=== PATIENT | female | born 1965 | race Caucasian/White ===

== ENCOUNTER → 2023-02-09 10:09 | Outpatient (CLI) | payer OTHER, MEDICAID, SELFPAY ==
[2023-02-09 10:57] LABS: Add Manual Diff / Slide Review NO; Basophils Absolute Auto 0 /uL (0-100); Basophils Percent Auto 0.8 % (0-2); Eosinophils Absolute Auto 0 /uL (0-450); Eosinophils Percent Auto 0.9 % (2-4); Hematocrit 37.4 % (36-46); Hemoglobin 12.5 g/dL (12.0-16.0); Lymphocytes Absolute Auto 1500 /uL (1100-4500); Lymphocytes Percent Auto 28.4 % (25-40); Mean Corpuscular HGB Conc 33.3 % (30-36); Mean Corpuscular Hemoglobin 28.9 PG (26-34); Mean Corpuscular Volume 86.8 fL (80-100); Monocytes Absolute Auto 700 /uL (0-900); Monocytes Percent Auto 12.5 % (3-14); Neutrophils Absolute Auto 3000 /uL (1500-7000); Neutrophils Percent Auto 57.4 % (50-75); Platelet Count 227 X10^3/uL (150-400); Red Blood Cell Count 4.31 X10^6/uL (4.0-5.2); Red Cell Distribution Width 15.3 % (11.6-14.8); White Blood Cell Count 5.3 X10^3/uL (4.5-11.0)
[2023-02-09 11:21] LABS: HEMOLYSIS < 15 (0-50); Potassium 5.2 mmol/L (3.4-5.1)
[2023-02-09 11:22] LABS: Alanine Aminotransferase 17 IU/L (<35); Albumin 4.3 g/dL (3.5-5.0); Albumin Globulin Ratio 1.4 (1.0-2.8); Alkaline Phosphatase 53 U/L (38-126); Aspartate Aminotransferase 30 IU/L (14-36); BUN Creatinine Ratio 20.6 (6-22); Bilirubin Total 0.6 mg/dL (0.2-1.3); Blood Urea Nitrogen 14 mg/dL (7-17); Calcium 9.7 mg/dL (8.4-10.2); Carbon Dioxide 30 mmol/L (22-32); Chloride 104 mmol/L (98-107); Cholesterol 180 mg/dL (140-199); Estimated Glomerular Filt Rate > 60 mL/min (>60); Globulin 3.1 g/dL (1.7-4.1); Glucose 105 mg/dL (70-100); HDL Cholesterol 62 mg/dL (40-60); LDL Cholesterol Calculated 95 mg/dL (<100); Sodium 137 mmol/L (137-145); Total Protein 7.4 g/dL (6.3-8.2); Triglycerides 114 mg/dL (35-150)
[2023-02-09 11:51] LABS: TSH w/ Reflex to FT4 1.27 uIU/mL (0.47-4.68)
== END ==
PROVIDERS: PCP Family Medicine; Referring Provider Family Medicine; Visit Provider Family Medicine
DX: Z13.6 Encounter for screening for cardiovascular disorders (principal); F41.9 Anxiety disorder, unspecified
CPT/HCPCS: 36415; 80053; 80061; 84443; 85025

== ENCOUNTER → 2023-02-14 08:53 | Outpatient (CLI) | payer OTHER, MEDICAID, SELFPAY ==
--- NOTE | 2023-02-14 08:54 | DI.CT.S_ITS ---
PROCEDURE: CT LUNG LOW DOSE SCREENING INDICATIONS: smoking history TECHNIQUE: Noncontrast 2.0-2.5 mm thick sections acquired from the pulmonary apices to the posterior costophrenic angles. 7 mm thick axial MIP, and 5 mm coronal and sagittal reformats were then acquired. For radiation dose reduction, the following was used: automated exposure control, adjustment of mA and/or kV according to patient size. COMPARISON: None. FINDINGS: Image quality: Diagnostic, given the low radiation dose technique. Lungs and pleura: No acute airspace opacities. No suspicious pulmonary nodules or mass lesions. Mediastinum: Heart size is normal. No pericardial effusion. No mediastinal adenopathy by size criteria. Thoracic aorta and central pulmonary arteries are normal in size. Esophagus is normal in caliber. No hiatal hernia. Bones and chest wall: No suspicious bony lesions. No vertebral body compression fractures. No axillary or supraclavicular adenopathy by size criteria. No thyroid nodules which require sonographic follow up, per consensus guidelines. Upper Abdomen: Visualized upper abdomen solid organs and bowel loops appear normal in the absence of contrast. IMPRESSION: No suspicious pulmonary nodules. LUNG-RADS 1; continued annual screening, if eligible. Clinically Significant Non-pulmonary Findings: None. Dictated by: Nita Gong M.D. on 02/14/2023 at 9:37 Approved by: Nita Gong M.D. on 02/14/2023 at 9:42
== END ==
PROVIDERS: PCP Family Medicine; Referring Provider Family Medicine; Visit Provider Family Medicine
DX: Z12.2 Encounter for screening for malignant neoplasm of respiratory organs (principal); Z87.891 Personal history of nicotine dependence
CPT/HCPCS: 71271

== ENCOUNTER → 2023-06-06 11:55 | Outpatient (CLI) | payer OTHER, MEDICAID, SELFPAY | PROVIDERS: PCP Family Medicine; Visit Provider Physician Assistant | DX: R82.90 Unspecified abnormal findings in urine (principal) | CPT/HCPCS: 87086 ==

== ENCOUNTER 2023-06-06 12:13 | Emergency (ER) | payer OTHER, MEDICAID, SELFPAY ==
[2023-06-06 12:23] VITALS: BP 174/79; PULSE 63; RESP 18; TEMP 36.6; O2SAT 96; BMI 27.8
--- NOTE | 2023-06-06 12:34 | DI.CT.S_ITS ---
PROCEDURE: CT ABDOMEN PELVIS W CON INDICATIONS: L flank pain TECHNIQUE: After the administration of intravenous contrast, axial sections acquired from the lung bases to the pubic symphysis. Coronal and sagittal reformats were performed. For radiation dose reduction, the following was used: automated exposure control, adjustment of mA and/or kV according to patient size. COMPARISON: None. FINDINGS: Image quality: Diagnostic. Lower Chest: No significant findings. ABDOMEN: Liver: No solid mass. Gallbladder: No radiopaque gallstones or wall thickening. Biliary ducts: No biliary dilation. Pancreas: No ductal dilation. Spleen: Size is within normal limits. Adrenal Glands: No adrenal nodules. Kidneys and Ureters: No hydronephrosis. No solid mass. No complex renal cystic lesion which requires follow up. Stomach and Bowel: Normal colonic caliber, without significant wall thickening. Scattered diverticulosis without evidence of acute diverticulitis. Peritoneum: No abnormal intraperitoneal fluid. No free air. Ventral Wall: No significant ventral hernia. Abdominal Nodes: No retroperitoneal or mesenteric adenopathy by size criteria. Vessels: Aorta and inferior vena cava are normal in size. PELVIS: Pelvic Organs: Unremarkable. Bladder: No bladder wall thickening, accounting for underdistention. Pelvic Nodes: No enlarged lymph nodes. Miscellaneous: Small bilateral fat containing inguinal hernias. Bones: No aggressive osseous abnormality. IMPRESSION: 1. No acute abdominal process noted. 2. Incidental note made of small bilateral inguinal hernias containing fat. 3. Scattered diverticulosis. 4. Otherwise unremarkable. No findings which explain left flank pain. Dictated by: Rodney Fuller M.D. on 06/06/2023 at 13:19 Approved by: Rodney Fuller M.D. on 06/06/2023 at 13:23
--- NOTE | 2023-06-06 12:36 | ED_ITS ---
HPI - Female Genitourinary <Juan Mitchell PA-C - Last Filed: 06/06/23 14:36> General Chief complaint: Urogenital-Female Stated complaint: [facility]IC ref/ pos. kidney stone/ ab pain Time Seen by Provider: 06/06/23 12:16 Source: patient Mode of arrival: Ambulatory History of Present Illness HPI Narrative: 57-year-old female with past medical history anemia, ADHD, anxiety presents to the ED with 10 days of flank pain. Patient states that she experienced bilateral flank pain for the past 10 days, however today the pain is concentrated in the left flank, wrapping around to the front. Patient endorses nausea, denies vomiting. Does endorse some cloudiness of the urine. Patient denies fever, chills, chest pain, shortness of breath, dysuria, urinary frequency, urinary urgency, diarrhea, constipation, lightheadedness, dizziness, syncope. No history of kidney stones. Patient has had bilateral oophorectomy, appendectomy. Related Data Home Medications Medication Instructions Recorded Confirmed biotin 1 mg capsule 1 mg PO DAILY 02/07/23 06/06/23 multivitamin 1 tab PO DAILY 02/07/23 06/06/23 ferrous gluconate 324 mg (38 mg 324 mg PO DAILY 02/27/23 06/06/23 iron) tablet Previous Rx's Medication Instructions Recorded nitroglycerin 0.4 % (w/w) rectal 1 inch MI ONCE PRN spasm #30 grams 02/27/23 ointment Allergies Allergy/AdvReac Type Severity Reaction Status Date / Time No Known Drug Allergies Allergy Verified 06/06/23 12:23 Review of Systems <Juan Mitchell PA-C - Last Filed: 06/06/23 14:36> Constitutional Constitutional: Denies chills, Denies fatigue, Denies fever(s), Denies frequent falls, Denies lethargy and Denies weakness Eyes Eyes: Denies change in vision, Denies eye discharge, Denies irritation and Denies loss of vision ENT Ears, Nose, Mouth, and Throat: Denies change in voice, Denies dizziness, Denies neck pain, Denies sore throat and Denies throat swelling Cardiovascular Cardiovascular: Denies chest pain, Denies irregular heart rhythm, Denies lightheadedness, Denies palpitations, Denies dyspnea, Denies dyspnea on exertion and Denies orthopnea Respiratory Respiratory: Denies cough, Denies dyspnea, Denies dyspnea on exertion and Denies wheezing Gastrointestinal Gastrointestinal: Reports abdominal pain, Denies change in bowel habits, Denies diarrhea, Reports nausea and Denies vomiting Comments: Flank pain Musculoskeletal Musculoskeletal: Denies neck pain and Denies numbness Integumentary/Breasts Skin/Breast: Denies pruritus, Denies erythema, Denies rash and Denies wounds Neurologic Neurologic: Denies behavioral changes, Denies confusion, Denies dizziness, Denies frequent falls, Denies loss of vision, Denies numbness and Denies weakness Psychiatric Psychiatric: Denies anxiety, Denies behavioral changes, Denies confusion, Denies depression, Denies homicidal ideation and Denies suicidal ideation Endocrine Endocrine: Denies fatigue, Denies flushing and Denies palpitations Hematologic/Lymphatic Hematologic/Lymphatic: Denies easy bruising Allergic/Immunologic Allergic/Immunologic: Denies urticaria, Denies throat swelling and Denies wheezing Patient History <Juan Mitchell PA-C - Last Filed: 06/06/23 14:36> Medical History Chicken pox (~1983) Anemia (~1979) Endometriosis (~1991) ADHD (~1982) Fibroids (~1991) Ovarian cyst (~1993) Surgical History Anesthesia H/O oophorectomy (~1995) Hx of tonsillectomy (~1973) History of appendectomy (~1997) Family History Father Stroke Brother Suicide alcohol intake frequency: 0-2 drinks per day Alcohol type: wine Substance Use Type: does not use Exam <Juan Mitchell PA-C - Last Filed: 06/06/23 14:36> Narrative Exam Narrative: Const General:?cooperative, healthy appearing and comfortable [facility] Head:?normal to inspection Ears:?hearing grossly normal bilaterally Nose:?external nose normal Face and sinus:?normal facial exam and sinuses nontender Mouth:?oral mucosae normal Throat:?posterior oropharynx normal Eyes General:?appearance normal, both eyes and all related structures Neck Neck:?normal visual inspection and no lymphadenopathy noted Resp Effort & Inspection:?normal respiratory effort Auscultation:?clear to auscultation bilaterally Cardio Rate:?regular rate Rhythm:?regular rhythm GI Abdomen is soft, nondistended. Abdomen is somewhat tender to palpation in the left quadrants. There is minimal right-sided CVA tenderness. Significant left- sided CVA tenderness. Neuro General:?patient alert, patient awake and patient oriented x3 Initial Vital Signs Initial Vital Signs: Vital Signs Temperature 97.8 F 06/06/23 12:23 Pulse Rate 63 06/06/23 12:23 Respiratory Rate 18 06/06/23 12:23 Blood Pressure 174/79 H 06/06/23 12:23 Pulse Oximetry 96 06/06/23 12:23 Oxygen Delivery Method Room Air 06/06/23 12:23 <Caitlyn Contreras MD - Last Filed: 06/06/23 14:48> Initial Vital Signs Initial Vital Signs: Vital Signs Temperature 97.8 F 06/06/23 12:23 Pulse Rate 63 06/06/23 12:23 Respiratory Rate 18 06/06/23 12:23 Blood Pressure 174/79 H 06/06/23 12:23 Pulse Oximetry 96 06/06/23 12:23 Oxygen Delivery Method Room Air 06/06/23 12:23 Course <Juan Mitchell PA-C - Last Filed: 06/06/23 14:36> Orders Ordered: ED Orders 06/06/23 12:27 CBC Auto Diff [Complete Blood Count AUTO DIFF] Stat CMP [Comprehensive Metabolic Panel] Stat Lipase Stat 06/06/23 12:34 CT abdomen pelvis w con Stat 06/06/23 13:22 Urine Culture Stat Urine Microscopic Stat Discontinued Medications Ketorolac Tromethamine (Ketorolac 30 Mg/Ml Vial) 15 mg IV NOW ONE Stop: 06/06/23 12:33 Last Admin: 06/06/23 12:45 Dose: 15 mg Documented By: SPF Ondansetron HCl (Ondansetron 4 Mg/2 Ml Inj) 4 mg IV NOW ONE Stop: 06/06/23 12:33 Last Admin: 06/06/23 12:46 Dose: 4 mg Documented By: SPF Vital Signs Vital signs: Vital Signs - 8 hr 06/06/23 12:23 06/06/23 14:03 Temperature 97.8 F 98.2 F Pulse Rate 63 48 L Respiratory Rate 18 16 Blood Pressure 174/79 H 115/61 Pulse Oximetry 96 96 Oxygen Delivery Method Room Air Room Air <Caitlyn Contreras MD - Last Filed: 06/06/23 14:48> Orders Ordered: ED Orders 06/06/23 12:27 CBC Auto Diff [Complete Blood Count AUTO DIFF] Stat CMP [Comprehensive Metabolic Panel] Stat Lipase Stat 06/06/23 12:34 CT abdomen pelvis w con Stat 06/06/23 13:22 Urine Culture Stat Urine Microscopic Stat Discontinued Medications Ketorolac Tromethamine (Ketorolac 30 Mg/Ml Vial) 15 mg IV NOW ONE Stop: 06/06/23 12:33 Last Admin: 06/06/23 12:45 Dose: 15 mg Documented By: SPF Ondansetron HCl (Ondansetron 4 Mg/2 Ml Inj) 4 mg IV NOW ONE Stop: 06/06/23 12:33 Last Admin: 06/06/23 12:46 Dose: 4 mg Documented By: SPF Vital Signs Vital signs: Vital Signs - 8 hr 06/06/23 12:23 06/06/23 14:03 Temperature 97.8 F 98.2 F Pulse Rate 63 48 L Respiratory Rate 18 16 Blood Pressure 174/79 H 115/61 Pulse Oximetry 96 96 Oxygen Delivery Method Room Air Room Air MDM - Female Genitourinary <Juan Mitchell PA-C - Last Filed: 06/06/23 14:36> Lab Data 06/06/23 12:27 06/06/23 12:27 Labs: Lab Results 06/06/23 06/06/23 Range/Units 12:27 13:22 WBC 5.9 (4.5-11.0) X10^3/uL RBC 4.28 (4.0-5.2) X10^6/uL Hgb 13.0 (12.0-16.0) g/dL Hct 38.5 (36-46) % MCV 89.9 (80-100) fL MCH 30.3 (26-34) PG MCHC 33.7 (30-36) % RDW 13.4 (11.6-14.8) % Plt Count 305 (150-400) X10^3/uL Neut % (Auto) 64.3 (50-75) % Lymph % (Auto) 21.8 L (25-40) % [place] % (Auto) 12.3 (3-14) % Eos % (Auto) 0.9 L (2-4) % Baso % (Auto) 0.7 (0-2) % Neut # (Auto) 3800 (1769-0538) /uL Lymph # (Auto) 1300 (8628-1485) /uL [place] # (Auto) 700 (0-900) /uL Eos # (Auto) 100 (0-450) /uL Baso # (Auto) 0 (0-100) /uL Sodium 138 (137-145) mmol/L Potassium 4.4 (3.4-5.1) mmol/L Chloride 106 (98-107) mmol/L Carbon Dioxide 25 (22-32) mmol/L BUN 25 H (7-17) mg/dL Creatinine 0.77 (0.52-1.04) mg/dL Estimated GFR > 60 (>60) mL/min BUN/Creatinine Ratio 32.5 H (6-22) Glucose 102 H (70-100) mg/dL Calcium 9.8 (8.4-10.2) mg/dL Total Bilirubin 0.6 (0.2-1.3) mg/dL AST 26 (14-36) IU/L ALT 13 (<35) IU/L Alkaline Phosphatase 67 (38-126) U/L Total Protein 7.7 (6.3-8.2) g/dL Albumin 4.4 (3.5-5.0) g/dL Globulin 3.3 (1.7-4.1) g/dL Albumin/Globulin Ratio 1.3 (1.0-2.8) Lipase 137 (23-300) U/L Urine RBC None seen (0-5/HPF) Urine WBC 1-5/hpf (0-5/HPF) Ur Squamous Epith Cells None seen (0-5/HPF) Urine Bacteria None seen (None) Ur Culture Indicated? Specimen cultured Vol Urine Centrifuged 10ml (spun) Urine Dip Bedside Urine Glucose Negative Bedside Urine Bilirubin - Negative Bedside Urine Ketone - Negative Urine Specific [place] 1.010 Bedside Urine Occult Blood - Negative Bedside Urine pH 6.0 Bedside Urine Protein - Negative Bedside Urine Urobilinogen - Negative Bedside Urine Nitrite - Negative Bedside Urine Leukocytes +/- 15 Esterase MDM Narrative Medical decision making narrative: 57-year-old female with past medical history anemia, ADHD, anxiety presents to the ED with 10 days of flank pain. Concern for UTI versus pyelonephritis versus nephrolithiasis versus diverticulitis versus other intra-abdominal pathology versus other. Will obtain labs, UA, CT abdomen pelvis. Will give ketorolac and Zofran for symptoms. Will reassess. Labs within normal limits. UA without UTI. CT abdomen pelvis with no acute findings. CT did note incidental finding of bilateral inguinal hernias. Discussed findings with patient. Patient is aware of the inguinal hernias. Unclear etiology of patient's symptoms, however can not rule out musculoskeletal sprain/strain versus constipation. Patient's symptoms are well controlled with ketorolac and Zofran. Recommend continued use of ibuprofen and Tylenol at home for symptoms. Patient agrees to monitor symptoms and return to the ED if she has worsening symptoms. Recommend follow-up with PCP as soon as possible as well. Medical records reviewed: Yes <Caitlyn Contreras MD - Last Filed: 06/06/23 14:48> Lab Data Labs: Lab Results 06/06/23 06/06/23 Range/Units 12:27 13:22 WBC 5.9 (4.5-11.0) X10^3/uL RBC 4.28 (4.0-5.2) X10^6/uL Hgb 13.0 (12.0-16.0) g/dL Hct 38.5 (36-46) % MCV 89.9 (80-100) fL MCH 30.3 (26-34) PG MCHC 33.7 (30-36) % RDW 13.4 (11.6-14.8) % Plt Count 305 (150-400) X10^3/uL Neut % (Auto) 64.3 (50-75) % Lymph % (Auto) 21.8 L (25-40) % [place] % (Auto) 12.3 (3-14) % Eos % (Auto) 0.9 L (2-4) % Baso % (Auto) 0.7 (0-2) % Neut # (Auto) 3800 (9186-6264) /uL Lymph # (Auto) 1300 (3502-1876) /uL [place] # (Auto) 700 (0-900) /uL Eos # (Auto) 100 (0-450) /uL Baso # (Auto) 0 (0-100) /uL Sodium 138 (137-145) mmol/L Potassium 4.4 (3.4-5.1) mmol/L Chloride 106 (98-107) mmol/L Carbon Dioxide 25 (22-32) mmol/L BUN 25 H (7-17) mg/dL Creatinine 0.77 (0.52-1.04) mg/dL Estimated GFR > 60 (>60) mL/min BUN/Creatinine Ratio 32.5 H (6-22) Glucose 102 H (70-100) mg/dL Calcium 9.8 (8.4-10.2) mg/dL Total Bilirubin 0.6 (0.2-1.3) mg/dL AST 26 (14-36) IU/L ALT 13 (<35) IU/L Alkaline Phosphatase 67 (38-126) U/L Total Protein 7.7 (6.3-8.2) g/dL Albumin 4.4 (3.5-5.0) g/dL Globulin 3.3 (1.7-4.1) g/dL Albumin/Globulin Ratio 1.3 (1.0-2.8) Lipase 137 (23-300) U/L Urine RBC None seen (0-5/HPF) Urine WBC 1-5/hpf (0-5/HPF) Ur Squamous Epith Cells None seen (0-5/HPF) Urine Bacteria None seen (None) Ur Culture Indicated? Specimen cultured Vol Urine Centrifuged 10ml (spun) Urine Dip Bedside Urine Glucose Negative Bedside Urine Bilirubin - Negative Bedside Urine Ketone - Negative Urine Specific [place] 1.010 Bedside Urine Occult Blood - Negative Bedside Urine pH 6.0 Bedside Urine Protein - Negative Bedside Urine Urobilinogen - Negative Bedside Urine Nitrite - Negative Bedside Urine Leukocytes +/- 15 Esterase Discharge Plan Departure Patient Disposition: Home Clinical Impression: Abdominal pain Instructions: DI for Abdominal Pain-Adult Activity Restrictions/Additional Instructions: You were evaluated in the ED today for flank and abdominal pain. Your labs, urine, CT were normal. It is unclear the exact cause of your discomfort, however can include constipation and musculoskeletal sprains/strains. You may take 600 mg of ibuprofen every 8 hours with food for pain. You may also take 1000 mg of Tylenol every 8 hours for pain. Please stay well hydrated. Please monitor your symptoms and return to the ED if you have worsening symptoms, fever, chills, persistent vomiting. Prescriptions: No Action ferrous gluconate 324 mg (38 mg iron) tablet 324 mg PO DAILY nitroglycerin 0.4 % (w/w) ointment 1 inch MI ONCE PRN (Reason: spasm) Qty: 30 0RF multivitamin Tablet 1 tab PO DAILY biotin 1 mg capsule 1 mg PO DAILY Referrals: Kimberly Salmon MD [Primary Care Provider] - Stand Alone Forms: Patient Portal/API, Work Release Note ED Sign-out <Caitlyn Contreras MD - Last Filed: 06/06/23 14:48> Cosign ED Attending Cosignature Attestation: I was immediately available in the department for consultation throughout this patient's visit. Caitlyn Contreras MD
[2023-06-06] MEDS: KETOROLAC 30 MG/ML VIAL 15 MG IV (12:45)
[2023-06-06] MEDS: ONDANSETRON 4 MG/2 ML INJ IV (12:46)
[2023-06-06 12:50] LABS: Alanine Aminotransferase 13 IU/L (<35); Albumin 4.4 g/dL (3.5-5.0); Albumin Globulin Ratio 1.3 (1.0-2.8); Alkaline Phosphatase 67 U/L (38-126); Aspartate Aminotransferase 26 IU/L (14-36); BUN Creatinine Ratio 32.5 (6-22); Bilirubin Total 0.6 mg/dL (0.2-1.3); Blood Urea Nitrogen 25 mg/dL (7-17); Calcium 9.8 mg/dL (8.4-10.2); Carbon Dioxide 25 mmol/L (22-32); Chloride 106 mmol/L (98-107); Estimated Glomerular Filt Rate > 60 mL/min (>60); Globulin 3.3 g/dL (1.7-4.1); Glucose 102 mg/dL (70-100); HEMOLYSIS < 15 (0-50); Lipase 137 U/L (23-300); Potassium 4.4 mmol/L (3.4-5.1); Sodium 138 mmol/L (137-145); Total Protein 7.7 g/dL (6.3-8.2)
[2023-06-06 12:58] LABS: Add Manual Diff / Slide Review NO; Basophils Absolute Auto 0 /uL (0-100); Basophils Percent Auto 0.7 % (0-2); Eosinophils Absolute Auto 100 /uL (0-450); Eosinophils Percent Auto 0.9 % (2-4); Hematocrit 38.5 % (36-46); Lymphocytes Absolute Auto 1300 /uL (1100-4500); Lymphocytes Percent Auto 21.8 % (25-40); Mean Corpuscular HGB Conc 33.7 % (30-36); Mean Corpuscular Hemoglobin 30.3 PG (26-34); Mean Corpuscular Volume 89.9 fL (80-100); Monocytes Absolute Auto 700 /uL (0-900); Monocytes Percent Auto 12.3 % (3-14); Neutrophils Absolute Auto 3800 /uL (1500-7000); Neutrophils Percent Auto 64.3 % (50-75); Platelet Count 305 X10^3/uL (150-400); Red Blood Cell Count 4.28 X10^6/uL (4.0-5.2); Red Cell Distribution Width 13.4 % (11.6-14.8); White Blood Cell Count 5.9 X10^3/uL (4.5-11.0)
--- NOTE | 2023-06-06 13:09 | PC.NURSE ---
Pt reports feeling much better after medications (see MAR), reports no nausea currently. Pt ambulated to bathroom and is attempting to provide urine sample.
[2023-06-06 14:03] VITALS: BP 115/61; PULSE 48; RESP 16; TEMP 36.8; O2SAT 96
[2023-06-06 14:04] LABS: Bacteria Urine None Seen; RBC Urine None Seen (0-5/HPF); Squamous Epithelial Cell Urine None Seen (0-5/HPF); Urine Volume 10mL (spun); WBC Urine 1-5/HPF (0-5/HPF)
[2023-06-06 14:05] LABS: Culture Indicated Urine Specimen Cultured
== END 2023-06-06 14:36 | disposition home or self-care (01) ==
PROVIDERS: Emergency Provider Student in an Organized Health Care Education/Training Program; PCP Family Medicine
DX: R10.9 Unspecified abdominal pain (principal); R82.90 Unspecified abnormal findings in urine
CPT/HCPCS: 36415; 74177; 80053; 81002; 81003; 81015; 83690; 85025; 87077; 87086; 87186; 96374; 96375; 99284; J1885; J2405; Q9967